=== PATIENT | female | born 1990 | race Caucasian/White ===

== ENCOUNTER 2017-04-12 18:32 | Emergency (ER) | payer OTHER ==
[~2017-04-12] VITALS: Ht 157.5 cm; Wt 60.3 kg
[2017-04-12 18:35] VITALS: BP_SYST 123
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
--- NOTE | 2017-04-12 19:20 | NUR ---
Dr. Corral at bedside examining the pt.
[2017-04-12 19:45] VITALS: BP_SYST 119
--- NOTE | 2017-04-12 19:45 | NUR ---
Patient given written and verbal discharge instructions and verbalizes understanding. ER MD Dr. Corral discussed with patient the results and treatment provided. Patient in stable condition. ID arm band removed. No Rx given. Patient educated on pain management and to follow up with PMD. Pain Scale 0/10 Opportunity for questions provided and answered.
== END 2017-04-12 19:45 ==
LOC: SED 18:32
DX: Z02.89 Encounter for other administrative examinations (principal)
CPT/HCPCS: 99283